=== PATIENT | female | born 2000 | race African-American/Black ===

== ENCOUNTER 2024-03-31 18:03 | Emergency (ER) | payer OTHER ==
[~2024-03-31] VITALS: Ht 162.6 cm; Wt 70.3 kg
[2024-03-31 18:40] VITALS: BP 124/66; TEMP 98.3
[2024-03-31 20:17] VITALS: O2SAT 98
== END 2024-03-31 20:17 | disposition home or self-care (01) ==
LOC: ER 18:06
DX: M54.50 Low back pain, unspecified (principal); M54.2 Cervicalgia; R51.9 Headache, unspecified; V43.53XA Car driver injured in collision with pick-up truck in traffic accident, initial encounter; Y93.89 Activity, other specified; Y92.410 Unspecified street and highway as the place of occurrence of the external cause; Y99.8 Other external cause status